=== PATIENT | male | born 1990 | race American Indian/Alaskan Native ===

== ENCOUNTER 2017-08-08 08:07 | Emergency (ER) | payer SELFPAY ==
[2017-08-08 08:15] VITALS: BP 128/67
== END 2017-08-08 11:53 | disposition left against medical advice (07) ==
LOC: ED 08:07
DX: J00 Acute nasopharyngitis [common cold] (principal); Z53.21 Procedure and treatment not carried out due to patient leaving prior to being seen by health care provider